=== PATIENT | female | born 1980 | race Caucasian/White ===

== ENCOUNTER 2019-04-26 12:33 | Emergency (ER) | payer OTHER, MEDICAID ==
[~2019-04-26] VITALS: Ht 170.2 cm; Wt 99.8 kg
[2019-04-26 16:51] VITALS: BP 115/75
[2019-04-26] MEDS ORDERED: KETOROLAC TROMETH 60MG/2ML VIAL IM ONE (18:30)
[2019-04-26] MEDS ORDERED: METHOCARBAMOL 500 MG TAB PO ONE (18:30)
== END 2019-04-26 18:50 | disposition home or self-care (01) ==
LOC: ER 12:33 → EDBD 12:33 → ER 18:48
DX: S30.1XXA Contusion of abdominal wall, initial encounter (principal); R51 Headache; R07.9 Chest pain, unspecified; R42 Dizziness and giddiness; V49.49XA Driver injured in collision with other motor vehicles in traffic accident, initial encounter; Y93.89 Activity, other specified; Y92.410 Unspecified street and highway as the place of occurrence of the external cause; Y99.8 Other external cause status
CPT/HCPCS: 71046; 93005; 96372; 99283; J1885